=== PATIENT | female | born 1950 | race Caucasian/White ===

== ENCOUNTER 2018-09-25 14:32 | Emergency (ER) | payer OTHER ==
[~2018-09-25] VITALS: Ht 152.4 cm; Wt 61.2 kg
[2018-09-25] MEDS ORDERED: ONDANSETRON HCL 4 MG/2 ML VIAL IV ONE (14:45)
[2018-09-25] MEDS ORDERED: MORPHINE SULFATE 4 MG/ML SYR/VIAL IV ONE (14:45)
[2018-09-25 16:59] VITALS: BP 157/78
== END 2018-09-25 17:40 | disposition home or self-care (01) ==
LOC: EDBD 14:32 → ER 14:34
DX: S70.01XA Contusion of right hip, initial encounter (principal); S50.01XA Contusion of right elbow, initial encounter; S09.8XXA Other specified injuries of head, initial encounter; Z90.710 Acquired absence of both cervix and uterus; V80.010A Animal-rider injured by fall from or being thrown from horse in noncollision accident, initial encounter; Y93.52 Activity, horseback riding; Y92.89 Other specified places as the place of occurrence of the external cause; Y99.8 Other external cause status
CPT/HCPCS: 70450; 72125; 73080; 73700; 94761; 96374; 96375; 99284; J2270; J2405

== ENCOUNTER 2019-02-23 13:05 | Emergency (ER) | payer OTHER ==
[~2019-02-23] VITALS: Ht 172.7 cm; Wt 54.4 kg
[2019-02-23 13:50] LABS: Basophils # (auto) 0.1 uL; Basophils % (auto) 0.8 % (0.0-2.0); Eosinophils # (auto) 0.2 uL; Eosinophils % (auto) 1.4 % (0.0-7.0); Hematocrit 41.3 % (36.0-46.0); Hemoglobin 13.8 g/dL (12.2-16.2); Lymphocytes # (auto) 1.4 uL; Lymphocytes % (auto) 9.5 % (10.0-50.0); Mean Corpuscular Hemoglobin 28.3 pg (28.0-32.0); Mean Corpuscular Hgb Conc. 33.5 g/dL (32.0-36.0); Mean Corpuscular Volume 84.3 fL (80.0-100.0); Monocytes # (auto) 1.8 uL; Monocytes % (auto) 12.4 % (0.0-12.0); Neutrophils # (auto) 11.3 uL; Neutrophils % (auto) 75.9 % (37.0-80.0); Platelet Count (auto) 334 10^3/uL (140-450); Red Blood Cells 4.89 10^6/uL (4.0-5.20); Red Cell Distribution Width 15.7 % (11.8-14.3); White Blood Cell 14.9 10^3/uL (4.4-10.8)
[2019-02-23 14:01] LABS: INR 1.2 (0.9-1.15); Partial Thromboplastin Time 28.2 sec (23.78-33.04); Prothrombin Time 12.7 sec (9.27-12.13)
[2019-02-23 14:09] LABS: Alanine Aminotransferase 37 U/L (13-56); Albumin 2.8 g/dL (3.4-5.0); Anion Gap 9 (5-15); Blood Urea Nitrogen 25 mg/dL (7-18); Calcium 8.4 mg/dL (8.5-10.1); Carbon Dioxide 24 mmol/L (21-32); Chloride 102 mmol/L (98-107); Glucose 107 mg/dL (74-106); Magnesium 2.7 mg/dL (1.6-2.6); Sodium 135 mmol/L (136-145)
[2019-02-23 14:14] LABS: Alkaline Phosphatase 72 U/L (45-117); Aspartate Aminotransferase 30 U/L (15-37); BUN/Creatinine Ratio 24.5; Bilirubin, Total 0.5 mg/dL (0.2-1.0); GFR African American 69 mL/min; GFR Non-African American 57 mL/min; Total Protein 6.3 g/dL (6.4-8.2)
[2019-02-23 14:15] LABS: Potassium 2.8 mmol/L (3.5-5.1)
[2019-02-23] MEDS: POTASSIUM CHL 20MEQ/100ML 100 ML IV SCH ×3 (15:30→19:00)
[2019-02-23 15:47] LABS: Salicylate < 1.7 mg/dL (2.8-20.0)
[2019-02-23 15:50] LABS: Acetaminophen 2.8 ug/mL (10-30)
[2019-02-23] MEDS ORDERED: LORazepam 2MG/ML-1ML VIAL IV ONE (18:30)
[2019-02-23 18:56] VITALS: BP 157/89
== END 2019-02-23 19:23 | disposition short-term general hospital (02) ==
LOC: EDBD 13:05 → ER 13:05
DX: G93.41 Metabolic encephalopathy (principal); E78.5 Hyperlipidemia, unspecified; Z90.49 Acquired absence of other specified parts of digestive tract; Z90.710 Acquired absence of both cervix and uterus
CPT/HCPCS: 36415; 51702; 70450; 71045; 80053; 80320; 80329; 83735; 84484; 85025; 85610; 85730; 93005; 96361; 96374; 99285; J3480